=== PATIENT | male | born 1955 | race Caucasian/White ===

== ENCOUNTER 2019-05-31 07:33 | Day surgery (SDC) | payer BC ==
[~2019-05-31] VITALS: Ht 180.3 cm; Wt 129.3 kg
[~2019-05-31 07:33] MED LIST: ATENOLOL100 MG PO; HYDROCODON-ACE1 EAC8 PO; INDOMETHACIN50 MG PO; LEVAQUIN750 MG PO; METHYLPREDNISOLO4 M1 PO; OXYCODONE HCL5 MG PO; SIMVASTATIN20 MG PO; TERAZOSIN HCL2 MG PO; ZESTRIL40 MG PO; ZITHROMAX250 MG PO
[2019-05-31] MEDS ORDERED: NEURONTIN300 MG PO (08:00)
--- NOTE | 2019-05-31 09:17 | NUR ---
05/31/19 0917 Jessica Bolaños 0910- PT ARRIVES TO PACU ALERT AND ORIENTED REPORTING NO PAIN OR NAUSEA. RESP EVEN AND UNLABORED. OXYGEN SAT MID TO HIGH 90'S ON 2L VIA NC. 0912- PT EDUCATED ABOUT PASSING FLATUS. PT IS ABLE TO DO THIS. 0916- OXYGEN TITRATED OFF. PT CONTINUES TO PASS FLATUS.
--- NOTE | 2019-05-31 13:50 | NUR ---
PT ALERT, ORIENTED AND SUPPORTED BY HIS . PT IN FOR FIRST SCOPE, AND EXPRESSED SOME ANXIOUS FEELINGS ABOUT PREVIOUS VISIT IN ER THAT WAS LESS THAN POSITIVE. EXPLAINED TO BOTH WHAT TO EXPECT TODAY, PT VERY MATTER OF FACT IN HIS APPROACH. GAVE BLESSING, WILL FOLLOW NEEDED
--- NOTE | 2019-05-31 18:26 | OR ---
[facility] [address] [place], [place] [address] Signed DATE OF OPERATION: 05/31/2019 SURGEON: Jdud Roe MD PREOPERATIVE DIAGNOSIS: Colon screening. POSTOPERATIVE DIAGNOSES: 1. Diverticulosis. 2. Polyps x2. PROCEDURE: Total colonoscopy to cecum with cold morcellation polypectomy x2 (right transverse colon and sigmoid). ANESTHESIA: Intravenous sedation, fentanyl 150 mcg, Versed 7 mg. INDICATION: This 64-year-old white man has never undergone colonoscopy in the past and is referred for that purpose. His primary provider is TERRANCE Landa. He has no symptoms currently of bleeding, diarrhea, or constipation. He has no known family history of colon cancer. He is known to me from the past having been suffered a left-sided empyema requiring thoracoscopic decortication in the [facility] and is recovered from that fully. He understands the risks of bleeding, infection, and perforation related to colonoscopy and wished to proceed. FINDINGS: The prep was good. Complete colonoscopy was undertaken to the cecum without question. He had numerous diverticula of the sigmoid and scattered diverticula elsewhere. He had two adenomatous polyps, one in the right transverse colon, the other in the sigmoid. Both were excised completely. There were no other findings of concern other than some internal hemorrhoidal changes. DESCRIPTION OF PROCEDURE: The patient was brought to the endoscopy suite and placed in lateral decubitus position, given intravenous sedation to the point of slurred speech and nystagmus. Digital rectal examination was normal. An Olympus video colonoscope was passed in the rectum and manipulated throughout the Electronically Signed By: JUDD ROE MD 05/31/19 1826 PATIENT NAME: VANESSA STROUD OPERATIVE REPORT DATE OF : 53 REPORT #: [id number] PHYSICIAN: JUDD ROE MD PCP: ALISHA MOTLEY PAC REPORT IS CONFIDENTIAL AND NOT TO BE RELEASED WITHOUT AUTHORIZATION [facility] [address] [place], [place] [address] Signed colon ultimately intubating the cecum. The ileocecal valve and appendiceal orifice were normal. Scope was withdrawn from that point. Examination was undertaken and in the right transverse colon, was a small adenomatous-appearing sessile polyp and was about 5 mm at most. This was excised with cold morcellation technique. The scope was further withdrawn. Numerous diverticula were once again seen. In the mid sigmoid, was a small polyp, also adenomatous in appearance, which was excised with cold morcellation technique. Further withdrawal of scope showed no other abnormality. Retroflexed view of the rectum showed some internal hemorrhoidal changes, minimal at most. The scope was straightened, withdrawn, removed, and the patient was taken to recovery room in good condition. CONCLUDING DIAGNOSES: Polyps x2 and diverticulosis. PLAN: Recommend repeat colonoscopy in 5 years sooner if symptoms should occur. Would recommend high-fiber diet as well. He will return to the ongoing care of Alisha Motley otherwise. MD MICHAEL Viveros/SARAH /[id number] cc: Alisha Motley PA-C Copies: ALISHA MOTLEY ~ Electronically Signed By: JUDD ROE MD 05/31/19 1826 PATIENT NAME: VANESSA STROUD OPERATIVE REPORT DATE OF : 53 REPORT #: [id number] PHYSICIAN: JUDD ROE MD PCP: ALISHA MOTLEY REPORT IS CONFIDENTIAL AND NOT TO BE RELEASED WITHOUT AUTHORIZATION
--- NOTE | 2019-06-01 12:55 | PATH ---
[facility] [address] [place], [place] [address] Signed SPECIMEN(S): A TRANSVERSE COLON POLYP SPECIMEN(S): B SIGMOID POLYP SPECIMEN SOURCE: A. TRANSVERSE COLON POLYP B. SIGMOID POLYP CLINICAL HISTORY: Screening. Postop: Polyp x2, diverticula. MICROSCOPIC DESCRIPTION: Histologic sections of all submitted blocks are examined by light microscopy. These findings, together with the gross examination, support the pathologic diagnosis. FINAL PATHOLOGIC DIAGNOSIS: A. Colon, transverse, polyp, polypectomy: - Tubular adenoma. - Negative for high-grade dysplasia or malignancy. B. Colon, sigmoid, polyp, polypectomy: - Tubular adenoma. - Negative for high-grade dysplasia or malignancy. NAL:cml:C2NR GROSS DESCRIPTION: Two specimens are received in two containers, labeled "JAQUELIN." A. The specimen, labeled "JAQUELIN, transverse colon polyp," is received in formalin and consists of a single 0.2 cm herron-brown polypoid fragment. Specimen is entirely submitted in cassette (A1). B. The specimen, labeled "JAQUELIN, sigmoid colon polyp," is received in formalin and consists of a single 0.2 cm herron-brown polypoid nodule. Specimen is entirely submitted in cassette (B1). AM (under the direct supervision of a pathologist) The Gross Description was prepared using a voice recognition system. The report was reviewed for accuracy; however, sound-alike word errors, addition and/or deletions may occur. If there is any question about this report, please contact Client Services. PERFORMING LABORATORY: The technical component was performed by [employer], [address] [place] [address] (Product Marketing Programs Manager: Sade Stinson MD; CLIA# [id number]). Professional interpretation was performed by PATIENT NAME: VANESSA STROUD PATHOLOGY DATE OF : 53 REPORT #: [id number] PHYSICIAN: CARLAYTE PATHOLOGY PCP: KT GOLDMAN PAC REPORT IS CONFIDENTIAL AND NOT TO BE RELEASED WITHOUT AUTHORIZATION [facility] [address] [place], [place] [address] Signed [facility], [facility], [address] [facility] [address], [place] [address] (Product Marketing Programs Manager: Brennen Bills MD; CLIA# [id number]). Diagnostician: Latanya Wood MD Pathologist Electronically Signed 06/01/2019 Copies: ~ PATIENT NAME: VANESSA STROUD PATHOLOGY DATE OF : 53 REPORT #: [id number] PHYSICIAN: REI PATHOLOGY PCP: KT GOLDMAN PAC REPORT IS CONFIDENTIAL AND NOT TO BE RELEASED WITHOUT AUTHORIZATION
== END 2019-05-31 09:48 | disposition home or self-care (01) ==
LOC: DS 07:33 → OPS 07:33 → DS 08:00 → OPS 08:00 → DS 08:30 → OPS 09:48
PROVIDERS: Surgery
PROC: 0DBN8ZZ Excision of Sigmoid Colon, Via Natural or Artificial Opening Endoscopic (ICD-10-PCS; 2019-05-31)
PROC: 0DBL8ZZ Excision of Transverse Colon, Via Natural or Artificial Opening Endoscopic (ICD-10-PCS; principal; 2019-05-31 08:00)
DX: Z12.11 Encounter for screening for malignant neoplasm of colon (principal); D12.3 Benign neoplasm of transverse colon; D12.5 Benign neoplasm of sigmoid colon; K57.30 Diverticulosis of large intestine without perforation or abscess without bleeding; K64.8 Other hemorrhoids; I10 Essential (primary) hypertension; E05.90 Thyrotoxicosis, unspecified without thyrotoxic crisis or storm; J86.9 Pyothorax without fistula; Z79.899 Other long term (current) drug therapy
CPT/HCPCS: 99153; G0500; J2250; J3010; J7121

== ENCOUNTER 2021-12-23 17:57 | Emergency (ER) | payer OTHER ==
[~2021-12-23 17:57] MED LIST changes: +NEURONTIN300 MG PO
--- OUTSIDE RECORDS SUMMARY | 2021-12-23 18:00 | XMS ---
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 Sudeep VISIT COUNT (12 MO.) Rabia Modi TOTAL 1 NOTE: Visits indicate total known visits. ED/UCC VISIT TRACKING (12 MO.) 12/23/2021 17:[address] [facility] [place] TYPE: Emergency COMPLAINT: - FALL INPATIENT VISIT TRACKING (12 MO.) No inpatient visits to display in this time frame [email or web address]
[2021-12-23] MEDS ORDERED: NORVASC5 MG PO (19:53)
[2021-12-23] MEDS ORDERED: ALLOPURINOL300 MG PO (19:54)
== END 2021-12-23 23:11 | disposition short-term general hospital (02) ==
LOC: ED 17:57
DX: S32.021A Stable burst fracture of second lumbar vertebra, initial encounter for closed fracture (principal); S92.062A Displaced intraarticular fracture of left calcaneus, initial encounter for closed fracture; W17.89XA Other fall from one level to another, initial encounter; Z20.822 Contact with and (suspected) exposure to COVID-19; I10 Essential (primary) hypertension
CPT/HCPCS: 36415; 70450; 71260; 72125; 73610; 73650; 73700; 74177; 80053; 81001; 82553; 83605; 83690; 85025; 86850; 86900; 86901; 87502; 90471; 90715; 96361; 96374; 96376; 99285-25; C9803; J1170; J7121; Q9967; U0003

== ENCOUNTER 2024-07-21 06:20 | Day surgery (SDC) | payer OTHER ==
[~2024-07-21] VITALS: Ht 180.3 cm; Wt 136.4 kg
[~2024-07-21 06:20] MED LIST changes: +ALLOPURINOL300 MG PO; +ASPIRIN81 MG PO; +BACLOFEN10 MG PO; +ELIQUIS5 MG PO; +IBU-200200 MG PO; +JARDIANCE10 MG PO; +K-TAB ER20 MEQ PO; +LACTATED RINGER'S 1,000 ML IV SCH; +LASIX20 MG PO; +LIPITOR20 MG PO; +LISINOPRIL-HCT1 EACH PO; +NORVASC5 MG PO; +ROPINIROLE HCL0.5 MG PO
[2024-07-21 06:50] VITALS: BP 133/84
[2024-07-21] MEDS ORDERED: CEFAZOLIN SODIUM 3 GM/30 ML SYR IV SCH (07:00)
[2024-07-21] MEDS ORDERED: IBLOOD GLUCOSE TEST STRIP 1 EA TEST VI PRN (07:00)
[2024-07-21] MEDS ORDERED: GABAPENTIN 600 MG TAB PO SCH (07:00)
[2024-07-21] MEDS ORDERED: LIDOCAINE HCL 1% 5 ML SDV INJ ONE (07:00)
[2024-07-21] MEDS ORDERED: KETOROLAC TROMETHAMINE 30 MG/ML VIAL ONE ×2 (07:30→08:13)
[2024-07-21] MEDS ORDERED: propofoL 200 MG/20 ML VIAL ONE (07:30)
[2024-07-21] MEDS ORDERED: DEXAMETHASONE SOD PHOS 4 MG/ML VIAL ONE (07:30)
[2024-07-21] MEDS ORDERED: ondansetron HCL 4 MG/2 ML VIAL ONE (07:30)
[2024-07-21] MEDS ORDERED: LIDOCAINE HCL 2% 5 ML SDV ONE (07:30)
[2024-07-21] MEDS ORDERED: fentaNYL citrate 100 MCG/2 ML VIAL ONE (07:30)
[2024-07-21] MEDS ORDERED: HYDROCODONE/ACETA 5/325 TAB PO PRN (08:15)
[2024-07-21] MEDS ORDERED: ePHEDrine sulfate 50 MG/ML AMP ONE (08:32)
[2024-07-21] MEDS ORDERED: DICLOFENAC SOD 75 MG TABEC PO SCH (09:00)
[2024-07-21] MEDS ORDERED: HYDROCODON-ACE1 EA10 PO (09:09)
[2024-07-21] MEDS ORDERED: DICLOFENAC SODI75 MG PO (09:09)
[2024-07-21 09:41] VITALS: BP 127/50
[2024-07-21 10:46] VITALS: BP 124/62
[2024-07-21] MEDS ORDERED: SEVOFLURANE 250 ML BTL INH ONE (11:03)
--- NOTE | 2024-07-21 15:38 | EKG ---
[facility] [address] [facility] [place] [address] Signed Atrial fibrillation with premature ventricular or aberrantly conducted complexes Low voltage QRS Abnormal ECG No previous ECGs available Confirmed by Jason Hyman MD ([id number]) on 07/21/2024 1:24:44 PM Electronically Signed By: JASON HYMAN MD 07/21/24 1538 PATIENT NAME: VANESSA STROUD Electrocardiogram DATE OF : 53 PHYSICIAN: JASON HYMAN MD REPORT #: [id number] REPORT IS CONFIDENTIAL AND NOT TO BE RELEASED WITHOUT AUTHORIZATION
--- NOTE | 2024-07-23 06:49 | OR ---
[facility] [address] [place], [place] [address] Signed DATE OF OPERATION: 07/21/2024 SURGEON: Vincent Bills MD PREOPERATIVE DIAGNOSIS: Medial meniscus tear, right knee. POSTOPERATIVE DIAGNOSIS: Medial meniscus tear, right knee. PROCEDURE PERFORMED: Right knee arthroscopy with partial medial meniscectomy. BEESWAX BLEACHER: None. ANESTHESIA: General. BLOOD LOSS: Minimal. BRIEF HISTORY: Vanessa is a 69-year-old gentleman with pain and locking in his knee after an industrial accident. MRI was consistent with a posteromedial meniscus tear. It was symptomatic mechanically and with pain and swelling. Risks and benefits of operative treatment discussed with him and he elected to proceed. DESCRIPTION OF PROCEDURE: Once consent was obtained, he was taken to the operating room. After adequate anesthesia, he was placed on the operating table. All downside pressure points were well padded. The left leg was flexed, abducted and externally rotated on a well-padded leg fajardo. The right was placed in well-padded leg fajardo and prepped and draped in a standard sterile fashion. A 0.25% Marcaine was injected in the portal sites and a standard inferolateral and superolateral portals were established. 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 Medial and lateral gutters were clear. The ACL and PCL were intact. Lateral compartment was intact. Medial compartment showed diffuse grade 2 to grade 3 chondromalacia of the femur, grade Electronically Signed By: VINCENT BILLS MD 07/23/24 0649 PATIENT NAME: VANESSA STROUD OPERATIVE REPORT DATE OF : 53 REPORT #: [id number] PHYSICIAN: VINCENT BILLS MD PCP: JUSTO RODRIGUEZ MD REPORT IS CONFIDENTIAL AND NOT TO BE RELEASED WITHOUT AUTHORIZATION [facility] [address] [place], [place] [address] Signed 2 changes on the femoral side. There was a large complex tear posteromedially. DESCRIPTION OF OPERATION: Diagnostic arthroscopy was undertaken as noted above. The standard inferomedial portal was established. After localization using a spinal needle, the straight and curved biters were then used to trim the meniscus tear back to a stable rim, and this was then feathered out using the shaver and all debris was evacuated. Chondral flaps on the femur were debrided to improve visualization. The scope was withdrawn. Portals were closed with 3-0 nylon and dressed with Adaptic, ABD, and Yvon wrap. The knee was injected with 60 mg Toradol at the end of the case. All sponge, needle, and instrument counts were correct. Vincent Bills MD BA/LEANNAL /[id number] Copies: ~ Electronically Signed By: VINCENT BILLS MD 07/23/24 0649 PATIENT NAME: VANESSA STROUD OPERATIVE REPORT DATE OF : 53 REPORT #: [id number] PHYSICIAN: VINCENT BILLS MD PCP: JUSTO RODRIGUEZ MD REPORT IS CONFIDENTIAL AND NOT TO BE RELEASED WITHOUT AUTHORIZATION
== END 2024-07-21 11:07 | disposition home or self-care (01) ==
LOC: DS 06:20
PROVIDERS: ATTEND Specialist
PROC: 0SBC4ZZ Excision of Right Knee Joint, Percutaneous Endoscopic Approach (ICD-10-PCS; principal; 2024-07-21 08:00)
DX: S83.241A Other tear of medial meniscus, current injury, right knee, initial encounter (principal); M10.9 Gout, unspecified; I10 Essential (primary) hypertension; Z79.82 Long term (current) use of aspirin; X58.XXXA Exposure to other specified factors, initial encounter
CPT/HCPCS: 01400; 93005; 93010; A9270; J0690; J1100; J1885; J2003; J2405; J2704; J3010; J7121

== ENCOUNTER 2025-02-07 11:06 | Day surgery (SDC) | payer OTHER ==
[~2025-02-07] VITALS: Ht 180.3 cm; Wt 139.5 kg
[~2025-02-07 11:06] MED LIST changes: +AMLODIPINE BESYL5 MG PO; +DICLOFENAC SODI75 MG PO; +HYDROCODON-ACE1 EA10 PO; +IBLOOD GLUCOSE TEST STRIP 1 EA TEST VI PRN; +LIDOCAINE HCL 1% 5 ML SDV INJ ONE; +MIDAZOLAM HCL 5 MG/5 ML VIAL IV PRN; +POTASSIUM CHLO10 MEQ PO; +fentaNYL citrate 100 MCG/2 ML VIAL IV PRN
[2025-02-07 11:37] VITALS: BP 131/74
[2025-02-07] MEDS ORDERED: fentaNYL citrate 100 MCG/2 ML VIAL ONE (12:32)
[2025-02-07] MEDS ORDERED: MIDAZOLAM HCL 5 MG/5 ML VIAL ONE (12:33)
--- NOTE | 2025-02-07 13:49 | NUR ---
02/07/25 1344 Amalia Patel 1343: PT ARRIVES TO PAC AWAKE AND ALERT. REPORT RECEIVED FROM FUELER.
[2025-02-07 14:08] VITALS: BP 129/80
[2025-02-08] MEDS ORDERED: PERCOCET 7.5-31 EACH PO (09:01)
[2025-02-08] MEDS ORDERED: TYLENOL EXTRA500 MG PO (09:01)
[2025-02-08] MEDS ORDERED: MOTRIN IB200 MG PO (09:02)
--- NOTE | 2025-02-12 14:10 | OR ---
[facility] [address] [place], [place] [address] Signed DATE OF OPERATION: 02/07/2025 SURGEON: Judd Roe MD PREOPERATIVE DIAGNOSES: 1. History of tubular adenoma x2 2019. 2. History of diverticulosis. POSTOPERATIVE DIAGNOSES: 1. Pandiverticular changes, no evidence of polyps. 2. Normal prostate on clinical exam. PROCEDURE: Total colonoscopy to cecum. ANESTHESIA: Intravenous sedation, fentanyl 100 mcg, Versed 6 mg. INDICATION: This 69-year-old white man is a patient of Dr. Justo Rodriguez and underwent colonoscopy in 2019, was found to have two tubular adenomas. He currently has no symptoms of bleeding, diarrhea, or constipation and no family history of colon cancer. He additionally has umbilical hernia, which is planned for repair tomorrow. The patient is said to have an elevated PSA he tells me and asks us particularly if prostate exam could be undertaken and I agreed to do so as well. FINDINGS: The prep was good. Complete colonoscopy was undertaken of the cecum. There was no evidence of polyps. He had diverticula scattered throughout the colon including the sigmoid. He had no palpable abnormalities of the prostate particularly. DESCRIPTION OF PROCEDURE: The patient was brought to the endoscopy suite and placed in lateral decubitus position, given intravenous sedation to the point of slurred speech and nystagmus. Digital rectal examination was normal. An Olympus video colonoscope was passed in the rectum and manipulated throughout the colon ultimately intubating the cecum itself. The ileocecal valve and appendiceal orifice were normal. The scope was withdrawn from that point. Examination throughout showed only diverticular changes throughout the colon, especially still in the sigmoid. Electronically Signed By: JUDD ROE MD 02/12/25 1410 PATIENT NAME: VANESSA STROUD OPERATIVE REPORT DATE OF : 53 REPORT #: [id number] PHYSICIAN: JUDD ROE MD PCP: JUSTO RODRIGUEZ MD REPORT IS CONFIDENTIAL AND NOT TO BE RELEASED WITHOUT AUTHORIZATION [facility] [address] [place] [address] Signed Retroflexed view of the rectum was normal. Re-examination of the prostate showed no palpable abnormality, asymmetry, or nodule. The patient was then taken to recovery room in good condition having suffered no complication. CONCLUDING DIAGNOSIS: Diverticulosis. No evidence of polyp. Prostate normal. PLAN: Recommend repeat colonoscopy in 10 years based on his current risk profile, sooner if symptoms should develop. He will return to the ongoing care of Dr. Justo Rodriguez in addition to follow up with Dr. Justo Rodriguez regarding his prostate testing and care. MD MICHAEL Viveros/SARAH /[id number] cc: Justo Rodriguez MD Copies: JUSTO RODRIGUEZ DMD ~ Electronically Signed By: JUDD ROE MD 02/12/25 1410 PATIENT NAME: VANESSA STROUD OPERATIVE REPORT DATE OF : 53 REPORT #: [id number] PHYSICIAN: JUDD ROE MD PCP: JUSTO RODRIGUEZ MD REPORT IS CONFIDENTIAL AND NOT TO BE RELEASED WITHOUT AUTHORIZATION
== END 2025-02-07 14:15 | disposition home or self-care (01) ==
LOC: DS 11:06 → OPS 11:06 → DS 13:00 → OPS 14:15
PROVIDERS: ATTEND Surgery
PROC: 0DJD8ZZ Inspection of Lower Intestinal Tract, Via Natural or Artificial Opening Endoscopic (ICD-10-PCS; principal; 2025-02-07 12:00)
DX: Z12.11 Encounter for screening for malignant neoplasm of colon (principal); K57.30 Diverticulosis of large intestine without perforation or abscess without bleeding; K42.0 Umbilical hernia with obstruction, without gangrene; Z86.0101 Personal history of adenomatous and serrated colon polyps; I10 Essential (primary) hypertension; I48.91 Unspecified atrial fibrillation; G47.30 Sleep apnea, unspecified; Z79.01 Long term (current) use of anticoagulants; Z79.899 Other long term (current) drug therapy
CPT/HCPCS: 99153; G0500; J2250; J3010; J7121

== ENCOUNTER 2025-02-08 05:52 | Day surgery (SDC) | payer OTHER ==
[~2025-02-08] VITALS: Ht 180.3 cm; Wt 140.0 kg
[~2025-02-08 05:52] MED LIST changes: -IBLOOD GLUCOSE TEST STRIP 1 EA TEST VI PRN; -LIDOCAINE HCL 1% 5 ML SDV INJ ONE; -MIDAZOLAM HCL 5 MG/5 ML VIAL IV PRN; -fentaNYL citrate 100 MCG/2 ML VIAL IV PRN
[2025-02-08 06:08] VITALS: BP 122/74
[2025-02-08] MEDS ORDERED: CEFAZOLIN SODIUM 3 GM/30 ML SYR IV SCH (07:00)
[2025-02-08] MEDS ORDERED: HEParin SOD (PORCINE) 5,000 UNIT/ML SDV SUB-Q SCH (07:00)
[2025-02-08] MEDS ORDERED: LIDOCAINE HCL 1% 5 ML SDV INJ ONE (07:00)
[2025-02-08] MEDS ORDERED: IBLOOD GLUCOSE TEST STRIP 1 EA TEST VI PRN (07:00)
[2025-02-08] MEDS ORDERED: fentaNYL citrate 100 MCG/2 ML VIAL ONE (07:10)
[2025-02-08] MEDS ORDERED: LIDOCAINE HCL 2% 5 ML SDV ONE (07:10)
[2025-02-08] MEDS ORDERED: SUGAMMADEX SODIUM 200 MG/2 ML ML ONE (08:39)
--- NOTE | 2025-02-08 08:50 | NUR ---
02/08/25 0850 Michelle Rey 0845-PATIENT ARRIVED TO PACU ON 8L MASK NONAROSABLE ORAL AIRWAY IN PLACE 02 SAT 92% RR EVEN. AFIB HR 50'S. IVF INFUSING. DRESSING TO ABDOMEN INTACT. 0846-02 SAT INCREASED TO 96% ON 8L MASK RR EVEN ORAL AIRWAY IN PLACE.
[2025-02-08] MEDS ORDERED: ACETAMINOPHEN 1,000 MG/100 ML VIAL ONE (08:59)
[2025-02-08] MEDS ORDERED: ACETAMINOPHEN 500 MG TAB PO PRN (09:00)
[2025-02-08] MEDS ORDERED: IBUPROFEN 600 MG TAB PO PRN (09:00)
[2025-02-08] MEDS ORDERED: OXYCODONE/APAP 7.5/325 TAB PO PRN (09:00)
[2025-02-08] MEDS ORDERED: LACTATED RINGER'S 1,000 ML IV SCH (09:00)
[2025-02-08] MEDS ORDERED: NALOXONE HCL 0.4 MG SYR IV PRN ×2 (09:00→09:30)
[2025-02-08] MEDS ORDERED: PERCOCET 7.5-31 EACH PO (09:01)
[2025-02-08] MEDS ORDERED: TYLENOL EXTRA500 MG PO (09:01)
[2025-02-08] MEDS ORDERED: MOTRIN IB200 MG PO (09:02)
[2025-02-08] MEDS ORDERED: fentaNYL citrate 50 MCG/ML SDV ONE (09:19)
[2025-02-08] MEDS ORDERED: fentaNYL citrate 50 MCG/ML SDV IV PRN (09:30)
[2025-02-08] MEDS ORDERED: HYDROmorphone HCL 1 MG/ML SYR IV PRN (09:30)
[2025-02-08] MEDS ORDERED: ACETAMINOPHEN 1,000 MG/100 ML VIAL IV ONE (09:45)
[2025-02-08 09:49] VITALS: BP 139/74
[2025-02-08 10:49] VITALS: BP 145/87
--- NOTE | 2025-02-08 15:21 | NUR ---
LE 0950-PT BACK TO ROOM FROM PACU ON 2 L VIA SC. RECEIVED REPORT FROM DARRION BARID. PT IS AWAKE. RESP EVEN AND UNLABORED. PT IS HAVING PAIN. ICE PACK IN PLACE. PT HAS A PILLOW ALSO. PT DRINKING WATER AND EATING PUDDING. LE 0956-PAIN MEDICATION GIVEN PER EMAR. LE 1000-AFTER TALKING WITH PT HE STATES HE USUALLY TAKES 2 PAIN PILLS AT ONE TIME. A SECOND PAIN PILL GIVEN PER EMAR. NO OTHER NEEDS AT THIS TIME. CALL LIGHT WITHIN REACH.
--- NOTE | 2025-02-08 15:34 | NUR ---
LE 1049-PT LAYING IN BED. RESP EVEN AND UNLABORED. RATES PAIN 4/10 AND THIS IS TOLERABLE. DENIES NAUSEA. PT IS READY TO GO HOME. PT WILL GET DRESSED. IN ROOM WITH PT. LE 1105-PT AMBULATES TO RESTROOM. PT ABLE TO VOID. LE 1109-PT BACK TO ROOM. WENT OVER DISCHARGE INSTURCTIONS WITH PT AND . ALL QUESTIONS ANSWERED. LE 1116-PT AMBULATES TO WHEELCHAIR AND RIDE PROVIDED TO FRONT OF HOSPITAL WHERE RIDE WAS WAITING WITH THE CAR.
[2025-02-08] MEDS ORDERED: SEVOFLURANE 250 ML BTL INH ONE (17:14)
--- NOTE | 2025-02-12 14:10 | OR ---
[facility] [address] [place], [place] [address] Signed DATE OF OPERATION: 02/08/2025 SURGEON: Judd Roe MD PREOPERATIVE DIAGNOSIS: Incarcerated umbilical hernia. POSTOPERATIVE DIAGNOSIS: Incarcerated umbilical hernia (properitoneal fat) fascial defect 3.0 cm. PROCEDURE: Repair of incarcerated umbilical hernia, 3.0 cm with implantation of Prolene mesh underlay technique and fascial reapproximation. ANESTHESIA: General endotracheal, Alex Seamons, AREA FIELD WORKER and local 10 mL of 0.25% Marcaine with epinephrine. INDICATION: This somewhat obese white man is a patient of Dr. Justo Rodriguez was noted to have a palpable mass at the umbilicus that is rather bulky and occasionally uncomfortable but does not reduce completely and is enlarged over time. He is chronically anticoagulated with Eliquis. He underwent colonoscopy by me yesterday off his Eliquis for at least 48 hours and now is to undergo repair of this incarcerated umbilical hernia. He understands as does his the risk of bleeding, infection, recurrence, and other unforeseen complications. Understanding this, he wished to proceed. FINDINGS: The herniated viscus was in the properitoneal fat. It could not be reduced without fascial release. Ultimately was reduced back into the properitoneal space. The area was cleared and implantation of Prolene Prograf mesh was undertaken in an underlay technique with reapproximation of the fascia transversely. He tolerated the procedure well. The fascial defect was 3.0 cm. DESCRIPTION OF PROCEDURE: The patient was brought to the operating room, given a general endotracheal anesthetic. Preoperative antibiotic Ancef 3 g was given. The abdomen was clipped and prepared with chlorhexidine solution and draped sterilely. Sequential compression device stockings were used and heparin subcutaneously administered. A curvilinear incision was made lateral to the palpable and nonreducible mass at the umbilicus. Dissection was carried Electronically Signed By: JUDD ROE MD 02/12/25 1410 PATIENT NAME: VANESSA STROUD OPERATIVE REPORT DATE OF : 53 REPORT #: [id number] PHYSICIAN: JUDD ROE MD PCP: JUSTO RODRIGUEZ MD REPORT IS CONFIDENTIAL AND NOT TO BE RELEASED WITHOUT AUTHORIZATION [facility] [address] [place], [place] [address] Signed through the dermis with electrocautery using blunt electrocautery dissection. The dermal skin over the herniated viscus was freed and circumferential definition of the protruding nonreducible fatty hernia undertaken. The fascial edge was incised. Despite excising the hernia sac defect could not be reduced and therefore a lateral extension in the fascial defect was undertaken. This did allow for reduction fully of the properitoneal fat. The properitoneal space was then developed bluntly circumferentially for a few cm and a segment of Prolene ProGrip mesh was cut to a circular configuration and secured in an underlay technique with interrupted 0 Prolene suture. The fascial defect was reapproximated transversely with interrupted 0 Prolene in a horizontal mattress configuration. A 10 mL of 0.25% Marcaine with epinephrine injected locally. Subcutaneous tissue was closed in layers with interrupted 3-0 Vicryl and skin closed with running subcuticular 3-0 Vicryl. Steri-Strips were applied as was an Acticoat dressing. He has tolerated the procedure well, was extubated in the operating room and transferred to recovery room in good condition having suffered no complications. Sponge, needle, and instrument counts were reported as correct x3. MD MICHAEL Viveros/MODL /[id number] cc: Justo Rodriguez MD Copies: JUSTO RODRIGUEZ DMD ~ Electronically Signed By: JUDD ROE MD 02/12/25 1410 PATIENT NAME: VANESSA STROUD OPERATIVE REPORT DATE OF : 53 REPORT #: [id number] PHYSICIAN: JUDD ORE MD PCP: JUSTO RODRIGUEZ MD REPORT IS CONFIDENTIAL AND NOT TO BE RELEASED WITHOUT AUTHORIZATION
== END 2025-02-08 11:16 | disposition home or self-care (01) ==
LOC: DS 05:52
PROVIDERS: ATTEND Surgery
PROC: 0WUF0JZ Supplement Abdominal Wall with Synthetic Substitute, Open Approach (ICD-10-PCS; principal; 2025-02-08 07:30)
DX: K42.0 Umbilical hernia with obstruction, without gangrene (principal); I48.91 Unspecified atrial fibrillation; I10 Essential (primary) hypertension; E66.01 Morbid (severe) obesity due to excess calories; Z68.41 Body mass index [BMI] 40.0-44.9, adult; Z86.0101 Personal history of adenomatous and serrated colon polyps; Z87.891 Personal history of nicotine dependence; Z79.01 Long term (current) use of anticoagulants; Z79.82 Long term (current) use of aspirin; Z79.899 Other long term (current) drug therapy
CPT/HCPCS: 00750; C1781; J0131; J0690; J1644; J2003; J2704; J3010; J7121